=== PATIENT | female | born 1930 | race Caucasian/White ===

== ENCOUNTER → 2016-09-13 | Outpatient (CLI) | payer MEDICARE, OTHER ==
--- NOTE | 2016-09-13 11:43 | REP ---
Digital diagnostic unilateral left breast mammography with CAD and focused left breast sonography: History: 6-month follow-up left breast imaging. Prior study showed a 6 mm hypoechoic area thought to reflect a complex cyst for which six month follow-up is recommended. Comparison mammography is also reviewed from February 11, 2015 and February 10, 2014. Mammographic findings: Heterogeneously very dense breast parenchyma is again seen in the left breast unchanged from prior study in a pattern which will inhibit the sensitivity of mammography. No suspicious mammographic finding. Sonographic findings: The left breast is scanned from 6 o'clock to 9 o'clock. A few dilated ducts are seen in the subareolar region at approximately 8 o'clock. There are two cysts identified at 8 o'clock as well measuring 6 mm and 3 mm. Each of these is less than 2 cm from the nipple. The smaller of these contain some hypoechoic internal echoes. It is smaller than on the February 14, 2016 prior study. The other cyst is somewhat smaller as well. Impression: BIRADS category II benign left breast imaging. Both sonographically visible cysts have decreased in size in the interval since the February 14, 2016 prior study. Mammography remains unremarkable. Heterogeneously dense breast parenchyma. Repeat screening bilateral mammography recommended in January 2017. BI-RADS/ACR category 2 mammogram. Benign finding(s). Routine annual screening mammography (for women over age 40). This mammogram was interpreted with the aid of an FDA-approved computer-aided detection system. The patient states that she has not had a clinical breast exam in over a year. The patient letter being requested is M2 dense. Signed by Endy Byrne MD 09/13/2016 01:40 P
== END ==
LOC: M RAD 08:46
PROVIDERS: ATTEND Physician Assistant Medical
DX: R92.8 Other abnormal and inconclusive findings on diagnostic imaging of breast (principal)
CPT/HCPCS: 76642; G0206

== ENCOUNTER → 2017-02-21 | Outpatient (CLI) | payer MEDICARE, OTHER ==
--- NOTE | 2017-02-21 10:59 | REPMRS ---
Patient History The patient states she had a clinical breast exam in August 2016. No known family history of cancer. Digital Mammo Screening Bilat: February 21, 2017 - Exam #: [id number] Bilateral CC and MLO view(s) were taken. Technologist: Kezia Wylie, Technologist Prior study comparison: September 13, 2016, left breast digital mammo diagnostic unilateral performed at [facility]. February 14, 2016, digital mammo diagnostic bilateral performed at [facility]. FINDINGS: The breast tissue is extremely dense which could obscure a lesion on mammography. There is no evidence of cancer on this mammogram. No significant changes when compared with prior studies. ASSESSMENT: BI-RADS/ACR category 2 mammogram. Benign finding(s). Recommendation Routine screening mammogram of both breasts in 1 year (for women over age 40). This mammogram was interpreted with the aid of an FDA-approved computer-aided dectection system. Electronically Signed By: Rusty Blue MD 02/21/17 1056
== END ==
LOC: M RAD 09:02
PROVIDERS: ATTEND Physician Assistant Medical
DX: Z12.31 Encounter for screening mammogram for malignant neoplasm of breast (principal)

== ENCOUNTER → 2018-02-13 | Outpatient (CLI) | payer MEDICARE, OTHER | LOC: M RAD 08:54 | DX: Z12.31 Encounter for screening mammogram for malignant neoplasm of breast (principal) | CPT/HCPCS: 77067 ==

== ENCOUNTER → 2019-02-14 | Outpatient (CLI) | payer MEDICARE, OTHER ==
--- NOTE | 2019-02-14 13:51 | REP ---
BILATERAL SCREENING DIGITAL MAMMOGRAM WITH 3D TOMOSYNTHESIS: There are no palpable abnormalities or other breast complaints. The the patient states she had a clinical breast examination August,. The Tyrer-Cuzick Score is: NA. Comparisons are 02/11/2016 and 02/10/2014. The breasts are extremely dense, which lowers the sensitivity of mammography. There is no dominant mass, micro calcific cluster or architectural distortion that would indicate malignancy. There are benign calcifications. There are no additional findings on 3D tomosynthesiss. There is no change from the prior study. Impression: BIRADS/ACR category 2 mammogram. Benign findings. Recommendation: Routine annual screening mammography. Because of the increased breast density, annual adjunctive breast MRI in addition to screening mammography is recommended. These can be performed at alternating six month intervals. This mammogram was interpreted with the aid of a FDA approved computer-aided detection system. A. Negative mammogram reports should not delay biopsy if a dominant or clinically suspicious mass is present. B. Not all breast cancers are identified by mammography or tomosynthesis. C. Adenosis and dense breasts may obscure an underlying neoplasm. Patient letter M1 dense breasts. Electronically Signed by Rusty Wagoner MD 02/14/2019 01:43 P
== END ==
LOC: M RAD 10:06
PROVIDERS: ATTEND Physician Assistant Medical
DX: Z12.31 Encounter for screening mammogram for malignant neoplasm of breast (principal); M81.0 Age-related osteoporosis without current pathological fracture

== ENCOUNTER → 2020-02-26 | Outpatient (CLI) | payer MEDICARE, OTHER ==
--- NOTE | 2020-02-26 09:59 | REPMRS ---
Patient History The patient states she has not had a clinical breast exam in over a year. No known family history of cancer. 3D TOMOSYNTHESIS WAS PERFORMED. [facility] Digital Woman Screen Mammo: February 26, 2020 - Exam #: [id number] Bilateral CC and MLO view(s) were taken. Technologist: Mariel Herrera, Technologist Prior study comparison: February 14, 2019, bilateral digital mammo screening bilat, performed at [facility]. February 13, 2018, bilateral digital mammo screening bilat, performed at [facility]. FINDINGS: The breast tissue is heterogeneously dense. This may lower the sensitivity of mammography. There has been no change in the appearance of the mammogram from the prior studies. There is a moderate amount of residual fibroglandular tissue which is fairly symmetric. There is no interval development of dominant mass, areas of architectural distortion, or clustered microcalcification typical of malignancy. Large coarse benign appearing calcifications are present. No significant changes when compared with prior studies. Assessment: BI-RADS/ACR category 1 mammogram. Negative Mammogram. Recommendation Routine screening mammogram in 1 year (for women over age 40). This mammogram was interpreted with the aid of an FDA-approved computer-aided dectection system. Electronically Signed By: Rusty Blue MD 02/26/20 0959
== END ==
LOC: M WHC 08:57
PROVIDERS: ATTEND Physician Assistant Medical
DX: Z12.31 Encounter for screening mammogram for malignant neoplasm of breast (principal)

== ENCOUNTER → 2021-03-14 | Outpatient (CLI) | payer MEDICARE, OTHER ==
--- NOTE | 2021-03-14 14:42 | REP ---
INDICATION: [facility] SCREEN MAMMO FOR MALIGNANT NEOPLASM OF BREAST. COMPARISON: 02/26/2020 as well as other prior exams. TECHNIQUE: MLO and CC views bilateral breasts with tomosynthesis. FINDINGS: There is heterogeneously dense fibroglandular tissue bilaterally. Relatively smoothly marginated nodule is seen in the anteromedial left breast approximately 11 mm in maximum diameter. Otherwise no change is seen with no other evidence of new mass or clustered microcalcifications. There are coarse benign and vascular calcifications bilaterally. The Volpara volumetric breast density pattern is C. IMPRESSION: BIRADS/ACR category 0, incomplete. Relatively smoothly marginated nodule anteromedial left breast approximately 11 mm in diameter. Recommend spot compression views and ultrasound to further evaluate. This mammogram was interpreted with the aid of an FDA-approved computer-aided detection system. The patient states she had a clinical breast exam in October 2020. The patient letter being requested is M0. RECOMMENDATION: Recommend spot compression views and ultrasound left breast. <Electronically signed by Rusty Blue > 03/14/21 [id number]
== END ==
LOC: M WHC 13:38
PROVIDERS: ATTEND Physician Assistant Medical
DX: Z12.31 Encounter for screening mammogram for malignant neoplasm of breast (principal)

== ENCOUNTER → 2021-04-13 | Outpatient (CLI) | payer MEDICARE, OTHER ==
--- NOTE | 2021-04-14 07:39 | REP ---
INDICATION: LEFT BREAST ADD VIEWS. Left breast mass COMPARISON: Screening mammogram, 03/14/2021. TECHNIQUE: 2D and 3D focal compression spot images of the left breast were obtained in the CC and MLO orientations. Targeted left breast ultrasound was performed. FINDINGS: In the anterior 3rd of the right breast, below and medial to the nipple, in the lower inner quadrant, there is an oval, circumscribed, isodense mass measuring 10 mm in diameter. Left breast ultrasound: 9 o'clock, 1 cm from the nipple, 11 x 10 x 10 mm, complicated cyst. The Volpara volumetric breast density pattern is D, the breast is extremely dense, which lowers the sensitivity of mammography.. IMPRESSION: BIRADS/ACR : Category 3: Probably benign. This mammogram was interpreted with the aid of an FDA-approved computer-aided detection system. The patient letter being requested is M3. RECOMMENDATION: Six-month follow-up ultrasound evaluation of the left breast. <Electronically signed by Maximo Tsai > 04/14/21 0779
== END ==
LOC: M WHC 11:13
PROVIDERS: ATTEND Physician Assistant Medical
DX: R92.8 Other abnormal and inconclusive findings on diagnostic imaging of breast (principal)
CPT/HCPCS: 76642; 77065; G0279

== ENCOUNTER → 2021-10-13 | Outpatient (CLI) | payer MEDICARE, OTHER | LOC: M WHC 09:44 | PROVIDERS: ATTEND Physician Assistant Medical | DX: N63.0 Unspecified lump in unspecified breast (principal) ==

== ENCOUNTER → 2022-03-06 | Outpatient (CLI) | payer MEDICARE | LOC: M WHC 10:40 | PROVIDERS: ATTEND Physician Assistant Medical | DX: Z12.31 Encounter for screening mammogram for malignant neoplasm of breast (principal); N63.0 Unspecified lump in unspecified breast ==